=== PATIENT | male | born 1990 | race Hispanic/Latino ===

== ENCOUNTER 2024-08-11 05:22 | Emergency (ER) | payer SELFPAY ==
[~2024-08-11] VITALS: Ht 185.4 cm; Wt 105.0 kg
[2024-08-11] VITALS (9 sets, daily range): BP systolic 103–129; BP diastolic 53–67
[2024-08-11] MEDS ORDERED: KETOROLAC TROMETHAMINE 30 MG/ML SDV IV STA (06:06)
[2024-08-11] MEDS ORDERED: SODIUM CHLORIDE 0.9% 1,000 ML IV STA (06:06)
[2024-08-11] MEDS ORDERED: ONDANSETRON HCl 4 MG/2 ML SDV IV STA (06:06)
[2024-08-11 07:12] LABS: BASO% 0.2 % (0-3); EOS% 0.9 % (0-8); HEMATOCRIT 45.4 % (39.0-50.0); HEMOGLOBIN 15.1 g/dl (14.0-18.0); IMMATURE GRANULOCYTES 0.2 % (0.0-5.0); LYMPH% 24.5 % (15-41); MEAN CELL VOLUME 86.5 fL CALC (80.0-100.0); MEAN CORPUSCULAR HGB 28.8 pG CALC (26.0-32.0); MEAN CORPUSCULAR HGB CONC 33.3 g/dL CAL (32.0-36.0); MONO% 9.8 % (2-13); NEUT# 3.6 thou/uL (1.82-7.42); NEUT% 64.4 % (42-76); RED BLOOD COUNT 5.25 mill/uL (4.70-6.10); RED CELL DISTRI WIDTH 11.5 % (11.5-15.5)
[2024-08-11 07:30] LABS: ALBUMIN 4.4 g/dL (3.2-5.0); ALKALINE PHOSPHATASE 44 u/l (38-126); ANION GAP 13 (6-22 (CALC)); BILIRUBIN, TOTAL 0.8 mg/dL (0.2-1.3); BUN 22 mg/dL (9-20); BUN/CREATININE RATIO 20 (12-20 (CALC)); CARBON DIOXIDE 25 mmol/l (22-30); CHLORIDE 106 mmol/l (95-108); CREATININE 1.1 mg/dL (0.7-1.3); ESTIMATED GFR 91 ML/MIN (>=90 (CALC)); LIPASE 118 u/l (23-300); POTASSIUM 4.2 mmol/l (3.5-5.1); SGOT/AST 85 u/l (17-59); SODIUM 140 mmol/l (137-146); TOTAL PROTEIN 7.4 g/dL (6.3-8.2)
[2024-08-11] MEDS ORDERED: Pantoprazole Sodium 40 MG VIAL (Protonix) IV ONE (07:45)
[2024-08-11] MEDS ORDERED: PROTONIX40 MG PO (08:10)
[2024-08-11] MEDS ORDERED: ZOFRAN4 MG/TAB PO (08:10)
== END 2024-08-11 08:22 | disposition home or self-care (01) | DRG 392 ==
LOC: ED 05:22
PROVIDERS: Family Medicine
DX: R10.13 Epigastric pain (principal)
CPT/HCPCS: J2405; J2470